=== PATIENT | male | born 1975 | race Two or more races ===

== ENCOUNTER 2021-05-26 00:44 | Inpatient (IN) | payer MEDICAID ==
[2021-05-26] VITALS (13 sets, daily range): BP systolic 92–133; BP diastolic 56–76
[~2021-05-26] VITALS: Ht 188 cm; Wt 87.5 kg
[~2021-05-26 00:44] MED LIST: ASPI81TA44; ATOR40TA PO; ESOM10SU PO; ESOM20CA PO; GLYB5TAB7 PO; METF-440; OMEG300C3 PO
--- NOTE | 2021-05-26 00:45 | NUR ---
TO ER BED 3 BIBEMS FROM HOME C/O SOB, LOW O2 SAT 90% ON CPAP BY EMS, CRACKLES HEARD BILATERALLY ON AUSCULTATION. PT AAOX4, ON CPAP BY EMS POINT OF SALE ASSOCIATE, NOTED O2 SAT 90%. PLACE PT ON CARDIAC MONITORING, CONTINUOUS POX. SKIN WARM, NONDIAPHORETIC. ER MD AT BEDSIDE TO EVAL PT WITH ORDERS RECEIVED. SL 20G ON THE R HAND POINT OF SALE ASSOCIATE. RT AT BEDSIDE TO PLACE PT ON BIPAP PER ER MD ORDER. WILL CARRY OUT ORDERS.
--- NOTE | 2021-05-26 00:45 | NUR ---
STARTED SL 18G TO [facility], BLOOD DRAWN AND SENT TO LAB.
[2021-05-26] MEDS ORDERED: NTG 50 MG/D5W250 ML BOTTL 0 ML IV ONE (00:52)
[2021-05-26] MEDS ORDERED: NTG 50 MG/D5W250 ML BOTTL 250 ML IV ONE (00:59)
[2021-05-26] MEDS ORDERED: NTG 50 MG/D5W250 ML BOTTL 50 MG/250 ML BTL IV ONE (01:00)
[2021-05-26 01:01] LABS: BASOPHILS % (AUTO) 0.1 % (0.0-2.0); EOSINOPHILS % (AUTO) 1.5 % (0.0-6.0); HEMATOCRIT 45 % (39-51); HEMOGLOBIN 15.1 g/dL (13.5-17.5); LYMPHOCYTES # (AUTO) 5.8 K/uL (0.8-4.8); LYMPHOCYTES % (AUTO) 28.3 % (20.0-44.0); MEAN CORPUSCULAR HGB CONC 34 g/dl (31.0-36.0); MEAN CORPUSCULAR VOLUME 89 fL (80-96); MONOCYTES # (AUTO) 1.3 K/uL (0.1-1.30); MONOCYTES % (AUTO) 6.3 % (2.0-12.0); NEUTROPHILS % (AUTO) 63.8 % (43.0-81.0); PLATELET COUNT (AUTO) 281 K/uL (150-450); RED BLOOD CELL COUNT(AUTO) 5.02 MIL/uL (4.5-6.0); WHITE BLOOD COUNT (AUTO) 20.4 K/uL (4.3-11.0)
--- NOTE | 2021-05-26 01:05 | NUR ---
RT PLACE PT ON BIAPAP. BIPAP SETTIN/5, RATE-16, FIO2-100%. WILL CONTINUE TO MONITOR.
--- NOTE | 2021-05-26 01:06 | NUR ---
NGT DRIP HELD DUE TO BP, PER ER .
--- NOTE | 2021-05-26 01:10 | NUR ---
RT NOTE LATE ENTRY: Pt rec'd on CPAP mask @ 15lpm via Transport team. Pt showed tachypnea, tachycardia, and low SPO2. Crackles heard on auscultation. Pt placed on bipap on noted settings per md orders. Abg to be taken within 1 hr. Alarms are set and audible. Ambu bag bedside. Bipap plugged into red outlet. will continue to monitor closely. Addendum: 05/26/21 at 0207 by PARRIS LEDEZMA RT Amended: Links added.
--- NOTE | 2021-05-26 01:14 | NUR ---
PT TOLERATING CURRENT BIPAP SETTING AT THIS TIME. CALL LIGHT WITHIN REACH.
[2021-05-26] MEDS ORDERED: PIPERACILLIN /TAZOBACTAM 3.375 G VIAL IV ONE (01:22)
[2021-05-26] MEDS ORDERED: VANCOMYCIN 1 GM VIAL ONE (01:22)
[2021-05-26 01:24] LABS: CREATININE 0.8 mg/dL (0.6-1.3); POTASSIUM 3.9 mmol/L (3.5-5.1)
[2021-05-26] MEDS ORDERED: VANCOMYCIN 1 GM in IV D5W 250 ML IV ONE (01:30)
[2021-05-26] MEDS ORDERED: PIPERACILLIN /TAZOBACTAM 3.375 G in IV D5W 50 ML IV ONE (01:30)
--- NOTE | 2021-05-26 01:33 | NUR ---
COVID SWAB COLLECTED AND SENT TO LAB
[2021-05-26 01:56] LABS: ALANINE AMINOTRANSFERASE 23 U/L (12-78); ALBUMIN 3.2 g/dL (3.4-5.0); ALKALINE PHOSPHATASE 94 U/L (46-116); ASPARTATE AMINOTRANSFERASE 20 U/L (15-37); BILIRUBIN,DIRECT 0.1 mg/dL (0.0-0.2); BILIRUBIN,TOTAL 0.3 mg/dL (0.2-1.0); TOTAL PROTEIN, SERUM 7.9 g/dL (6.4-8.2)
[2021-05-26] MEDS ORDERED: FUROSEMIDE 40 MG/4 ML VIAL IV ONE (02:00)
[2021-05-26] MEDS ORDERED: FUROSEMIDE 40 MG/4 ML VIAL ONE (02:17)
--- NOTE | 2021-05-26 03:20 | NUR ---
URINE COLLECTED AND SENT TO LAB
[2021-05-26 03:29] LABS: BILIRUBIN,URINE Negative (NEGATIVE); COLOR,URINE YELLOW (YELLOW); LEUKOCYTE ESTERASE ,URINE Negative (NEGATIVE); NITRITE, URINE Negative (NEGATIVE); PH,URINE 5.5 (5.0-8.0); PROTEIN,URINE >=300 mg/dl (NEGATIVE); UGLUCOSE 500 MG/DL mg/dL (NEGATIVE); UROBILINOGEN,URINE 0.2 EU/dL (0.2)
[2021-05-26 03:36] LABS: ABG BASE EXCESS -1.5 mmol/L; ABG OXYGEN SATURATION 97.9 % (92.0-98.5); ABG PCO2 38.3 mmHg (35.0-45.0); ABG PH 7.397 (7.350-7.450); ABG PO2 124.2 mmHg (75.0-100.0); AaDO2 550.5 mmHg; MetHb 0.3 % (0.0-1.5); O2Hb 95.6 % (94.0-97.0); SITE, ABG Right Radial
[2021-05-26 03:47] LABS: BACTERIA,URINE None seen /HPF (None Seen); SQUAMOUS EPITHELIAL CELL,UR Rare /HPF (None Seen)
[2021-05-26 03:48] LABS: MUCUS,URINE Few /LPF (None Seen)
[2021-05-26 03:49] LABS: FINE GRANULAR CASTS,URINE Few /LPF (None Seen)
--- NOTE | 2021-05-26 08:06 | NUR ---
GOT BED 258
--- NOTE | 2021-05-26 08:13 | NUR ---
BED ASSIGNMENT CHANGED TO 253
--- NOTE | 2021-05-26 08:36 | NUR ---
REPORT GIVEN TO NURSE CUTLER
[2021-05-26] MEDS ORDERED: Medication Not On Formulary EA (Omega-3 Fatty Acids (Fish Oil) 300 MG) PO SCH (09:00)
--- NOTE | 2021-05-26 09:00 | NUR ---
ICU/RN PT ADMITTED FROM ER.SOB ON VENTI MASK 50%-15L,SAT O2-94%.V/S STABLE,AFEBRILE.[id number].RR-35-40 BPM. NO PAIN REPORTED AT THIS TIME.IV-HL.SKIN INTACT.PT USE URINAL. ABG ORDERED. DUE MEDS ARE GIVEN ORDERED.LABS REVIEW. AWARE.
[2021-05-26] MEDS: METOPROLOL TARTRATE 25 MG TABLET PO SCH ×2 (09:25→21:00)
[2021-05-26] MEDS: FUROSEMIDE 40 MG/4 ML VIAL IV SCH ×2 (09:25→17:22)
[2021-05-26] MEDS: ASPIRIN EC 81 MG TABLET.DR PO SCH (09:26)
[2021-05-26] MEDS: ENOXAPARIN SODIUM 100 MG/ML DISP.SYRIN SQ SCH ×2 (09:27→21:15)
[2021-05-26 09:50] LABS: THYROID STIMULATING HORMONE 1.068 uIU/mL (0.358-3.74)
[2021-05-26 10:02] LABS: C-REACTIVE PROTEIN 5.4 mg/dL (0.0-0.9)
[2021-05-26] MEDS: CEFTRIAXONE 1 G in IV D5W 50 ML IV SCH (10:40)
[2021-05-26] MEDS ORDERED: IV NS 0.9% 1,000 ML ONE (11:19)
[2021-05-26] MEDS ORDERED: IODIXANOL 150 ML IV ONE (11:19)
[2021-05-26] MEDS ORDERED: NITROGLYCERIN IN 5 % DEXTROSE 0 ML IV ONE (11:19)
[2021-05-26] MEDS ORDERED: IV SET PRIMARY PUMP SET 1 EA INFUS.SET MC ONE (11:19)
[2021-05-26] MEDS ORDERED: VERAPAMIL HCL IV 5 MG/2 ML VIAL ONE (11:19)
[2021-05-26] MEDS ORDERED: LIDOCAINE HCL/MPF 1% 30 ML VIAL IJ ONE (11:27)
[2021-05-26] MEDS ORDERED: *INSULIN REGULAR(HUMULIN R)HUM 100 UNIT/ML VIAL SQ PRN (11:30)
[2021-05-26] MEDS ORDERED: DEXTROSE 50%-WATER 50 ML DISP.SYRIN IV PRN (11:30)
[2021-05-26] MEDS: BLOOD SUGAR DIAGNOSTIC 1 EACH STRIP VI SCH ×3 (11:37→21:29)
[2021-05-26] MEDS: glyBURIDE 5 MG TABLET PO SCH (11:37)
[2021-05-26] MEDS ORDERED: IV NS 0.9% 0 ML IV ONE (11:39)
[2021-05-26 11:52] LABS: ABG BASE EXCESS -1.7 mmol/L; ABG OXYGEN SATURATION 94.1 % (92.0-98.5); ABG PCO2 28.5 mmHg (35.0-45.0); ABG PH 7.472 (7.350-7.450); ABG PO2 65.1 mmHg (75.0-100.0); AaDO2 259.3 mmHg; COHb 0.7 % (0.5-1.5); MetHb 0.3 % (0.0-1.5); O2Hb 93.2 % (94.0-97.0); SITE, ABG Right Radial; VENT MODE, BG VENTI MASK 50%
[2021-05-26] MEDS ORDERED: ONDANSETRON HCL/PF 4 MG/2 ML VIAL IVP PRN (12:30)
[2021-05-26] MEDS ORDERED: ACETAMINOPHEN 325 MG TABLET PO PRN (12:30)
--- NOTE | 2021-05-26 17:03 | NUR ---
ICU/RN DUE MEDS ARE GIVEN ORDERED.PM CARE PROVIDED.FAMILY AT BED SIDE.V/S STABLE AFEBRILE.NO PAIN REPORTED AT THIS TIME.CONTINUE MONITORING.
[2021-05-26] MEDS: INSULIN REGULAR, HUMAN 100 UNIT/ML 3 ML VIAL SQ PRN ×2 (17:24→21:33)
[2021-05-26] MEDS ORDERED: ATORVASTATIN 40 MG TABLET PO SCH (22:00)
--- NOTE | 2021-05-26 22:33 | NUR ---
patient sleeping with 02 on at 5 liters n/c .sat 90%. lungs clear on monitor sinus tach heart rate 120 temp 99.1 patient b/p 92/60 held lopressor 25mg po. blood sugar 207 4 units given s.q. regular insulin s.q. called 2000 ask him if i could give lovenox 100 mg he said i could give the lovenox. patient to be npo midnite for heart cath.
[2021-05-27] VITALS (24 sets, daily range): BP systolic 92–126; BP diastolic 55–79
[2021-05-27 04:40] LABS: BASOPHILS % (AUTO) 0.2 % (0.0-2.0); EOSINOPHILS % (AUTO) 0.6 % (0.0-6.0); HEMATOCRIT 42 % (39-51); HEMOGLOBIN 14.4 g/dL (13.5-17.5); LYMPHOCYTES # (AUTO) 3.1 K/uL (0.8-4.8); LYMPHOCYTES % (AUTO) 21.9 % (20.0-44.0); MEAN CORPUSCULAR HGB CONC 34 g/dl (31.0-36.0); MEAN CORPUSCULAR VOLUME 88 fL (80-96); MONOCYTES # (AUTO) 0.9 K/uL (0.1-1.30); MONOCYTES % (AUTO) 6.6 % (2.0-12.0); NEUTROPHILS % (AUTO) 70.7 % (43.0-81.0); PLATELET COUNT (AUTO) 245 K/uL (150-450); WHITE BLOOD COUNT (AUTO) 14.2 K/uL (4.3-11.0)
[2021-05-27 04:48] LABS: CALCIUM, SERUM 8.7 mg/dL (8.5-10.1); CREATININE 0.7 mg/dL (0.6-1.3); POTASSIUM 3.5 mmol/L (3.5-5.1)
[2021-05-27 04:53] LABS: ALBUMIN 2.8 g/dL (3.4-5.0); BILIRUBIN,TOTAL 0.6 mg/dL (0.2-1.0); MAGNESIUM 1.9 mg/dL (1.8-2.4); PHOSPHORUS 3.5 mg/dL (2.5-4.9); TOTAL PROTEIN, SERUM 7.5 g/dL (6.4-8.2)
[2021-05-27 05:02] LABS: THYROID STIMULATING HORMONE 0.533 uIU/mL (0.358-3.74)
--- NOTE | 2021-05-27 05:18 | NUR ---
AT 0515 TROPONIN 0.541 COMING DOWN YESTERDAY TROPONIN 0.567.
[2021-05-27] MEDS: BLOOD SUGAR DIAGNOSTIC 1 EACH STRIP VI SCH ×4 (07:29→21:32)
--- NOTE | 2021-05-27 07:40 | NUR ---
ICU/RN PT IS RESTING IN THE BED ON 4L N/C SAT O2-94%.V/S STABLE,AFEBRILE.HR -ST-111 BPM.NO PAIN REPORTED AT THIS TIME.PT IS NPO.WAITING FOR THE PROFESSOR OF SPECIAL EDUCATION. DR ROJAS SEEN THE PT.LABS REVIEW. AWARE.CONTINUE MONITORING.
[2021-05-27] MEDS ORDERED: FENTANYL PF 100MCG/2ML AMPUL ONE (07:59)
[2021-05-27] MEDS ORDERED: IODIXANOL 150 ML IV ONE (07:59)
[2021-05-27] MEDS ORDERED: MIDAZOLAM HCL 2 MG/2ML VIAL ONE (07:59)
[2021-05-27] MEDS ORDERED: NTG 50 MG/D5W250 ML BOTTL 0 ML IV ONE (08:00)
[2021-05-27] MEDS ORDERED: IV NS 0.9% 1,000 ML ONE (08:03)
--- NOTE | 2021-05-27 08:05 | NUR ---
ICU/RN PT AGREE FOR LEFT HEART CATH CATHETERIZATION PROCEDURE.CONSENT SIGN .TRANSFERRED TO RENTAL CLERK.
[2021-05-27] MEDS ORDERED: LIDOCAINE HCL/MPF 1% 30 ML VIAL IJ ONE (08:14)
[2021-05-27] MEDS: POTASSIUM CHLORIDE 20 MEQ TAB.PRT.SR PO SCH ×3 (08:29→11:37)
[2021-05-27] MEDS: CARVEDILOL 3.125 MG TABLET PO SCH ×2 (08:29→21:08)
[2021-05-27] MEDS: ASPIRIN EC 81 MG TABLET.DR PO SCH (08:29)
[2021-05-27] MEDS: FUROSEMIDE 40 MG/4 ML VIAL IV SCH ×3 (08:29→15:24)
[2021-05-27] MEDS: glyBURIDE 5 MG TABLET PO SCH (08:30)
[2021-05-27] MEDS: METOPROLOL TARTRATE 25 MG TABLET PO SCH ×2 (08:30→21:07)
[2021-05-27] MEDS: PANTOPRAZOLE 40 MG TABLET.DR PO SCH (08:30)
[2021-05-27] MEDS ORDERED: INSULIN GLARGINE, 100 UNIT/ML CARTRIDGE SQ ONE (09:00)
[2021-05-27] MEDS: NICOTINE PATCH (21MG) 21 MG PATCH.TD24 TD SCH (09:33)
[2021-05-27] MEDS: CEFTRIAXONE 1 G in IV D5W 50 ML IV SCH (09:33)
[2021-05-27] MEDS: ENOXAPARIN SODIUM 80 MG/0.8 ML DISP.SYRIN SQ SCH ×2 (09:34→21:09)
[2021-05-27] MEDS: INSULIN REGULAR, HUMAN 100 UNIT/ML 3 ML VIAL SQ PRN ×2 (09:36→18:23)
--- NOTE | 2021-05-27 14:00 | NUR ---
ICU/RN TR BAND REMOVED.NO S/S OF BLEEDING NOTED.
--- NOTE | 2021-05-27 18:00 | NUR ---
ICU/RN PM CARE PROVIDED.DUE MEDS ARE GIVEN ORDERED.V/S STABLE,AFEBRILE NO PAIN REPORTED AT THIS TIME.
[2021-05-27] MEDS ORDERED: LORAZEPAM INJ 2 MG/ML VIAL ONE (18:13)
--- NOTE | 2021-05-27 19:35 | NUR ---
RN NOTES RECEIVED PATIENT ON BED TALKING TO HIS PHONE. PATIENT IS AOX4 JAPANESE SPEAKING. FULL CODE. DX WITH CHF, NSTEMI. S/P CARDIAC CATH ON RADIAL ACCESS. DENIES CHEST PAIN. NO ACUTE RESPIRATORY DISTRESS. WITH O2 5LPM VIA NC SATURATION 95%. AFEBRILE. SINUS TACH WITH BBB IN MONITOR. HR 120'S. IV SITE ON RIGHT HAND G 20 AND RAC G 18 INTACT AND PATENT. KEPT PT CLEAN AND COMFORTABLE IN BED. CALL LIGHT KEPT WITHIN EASY REACH INSTRUCTION PROVIDED. WILL CONTINUE TO MONITOR.
[2021-05-27] MEDS: ATORVASTATIN 40 MG TABLET PO SCH (21:06)
[2021-05-28] VITALS (12 sets, daily range): BP systolic 98–134; BP diastolic 54–80
--- NOTE | 2021-05-28 | NUR ---
RN NOTES PATIENT ASLEEP WELL , BREATHING EVEN AND UNLABORED. CONTINUE WITH O2 4LPM VIA NC SATURATION BETWEEN 90-93%. AFEBRILE. VSS. INDEPENDENT WITH BED MOBILITY. WILL CONT.TO MONITOR.
[2021-05-28 04:46] LABS: BASOPHILS % (AUTO) 0.1 % (0.0-2.0); EOSINOPHILS % (AUTO) 2.2 % (0.0-6.0); HEMATOCRIT 43 % (39-51); HEMOGLOBIN 14.7 g/dL (13.5-17.5); LYMPHOCYTES % (AUTO) 31.5 % (20.0-44.0); MEAN CORPUSCULAR HGB CONC 34 g/dl (31.0-36.0); MEAN CORPUSCULAR VOLUME 89 fL (80-96); MONOCYTES % (AUTO) 7.5 % (2.0-12.0); NEUTROPHILS # (AUTO) 7.5 K/uL (1.8-8.9); NEUTROPHILS % (AUTO) 58.7 % (43.0-81.0); PLATELET COUNT (AUTO) 252 K/uL (150-450); RED BLOOD CELL COUNT(AUTO) 4.82 MIL/uL (4.5-6.0); WHITE BLOOD COUNT (AUTO) 12.7 K/uL (4.3-11.0)
[2021-05-28 05:07] LABS: ALBUMIN 2.7 g/dL (3.4-5.0); BILIRUBIN,TOTAL 0.5 mg/dL (0.2-1.0); CREATININE 0.9 mg/dL (0.6-1.3); MAGNESIUM 2.3 mg/dL (1.8-2.4); PHOSPHORUS 3.8 mg/dL (2.5-4.9); POTASSIUM 3.5 mmol/L (3.5-5.1)
--- NOTE | 2021-05-28 06:46 | NUR ---
RN NOTES PATIENT ASLEEP WELL ON BED. NO ACUTE RESPIRATORY DISTRESS ON O2 4LPM VIA NC SATURATION >90%. DENIES PAIN OR CHEST PAIN. AFEBRILE. VSS RIGHT RADIAL INTACT NO BLEEDING. NO SIGNIFICANT CHANGES THROUGHOUT THE SHIFT. WILL CONTINUE CLOSE MONITOR.
--- NOTE | 2021-05-28 08:00 | NUR ---
ICU/RN PT IS AWAKE ,ALERT,ORIENTED-4.ON 4L N/C SAT O2-95%.V/S STABLE,AFEBRILE.NO PAIN REPORTED AT THIS TIME.IV-HL.SKIN INTACT.PT USE URINAL.LABS REVIEW. AWARE.
[2021-05-28] MEDS: ASPIRIN EC 81 MG TABLET.DR PO SCH (08:33)
[2021-05-28] MEDS: glyBURIDE 5 MG TABLET PO SCH ×3 (08:33→16:40)
[2021-05-28] MEDS: CARVEDILOL 3.125 MG TABLET PO SCH (08:34)
[2021-05-28] MEDS: METOPROLOL TARTRATE 25 MG TABLET PO SCH ×2 (08:34→22:39)
[2021-05-28] MEDS: PANTOPRAZOLE 40 MG TABLET.DR PO SCH (08:34)
[2021-05-28] MEDS: NICOTINE PATCH (21MG) 21 MG PATCH.TD24 TD SCH (08:34)
[2021-05-28] MEDS: BLOOD SUGAR DIAGNOSTIC 1 EACH STRIP VI SCH ×4 (08:35→22:41)
[2021-05-28] MEDS: ENOXAPARIN SODIUM 80 MG/0.8 ML DISP.SYRIN SQ SCH ×2 (08:36→22:40)
[2021-05-28] MEDS: INSULIN REGULAR, HUMAN 100 UNIT/ML 3 ML VIAL SQ PRN ×3 (08:37→16:46)
--- NOTE | 2021-05-28 09:00 | NUR ---
ICU/RN DUE MEDS ARE GIVEN ORDERED. OK TRANSFER TO TELE UNIT.
[2021-05-28] MEDS: CEFTRIAXONE 1 G in IV D5W 50 ML IV SCH (09:36)
[2021-05-28] MEDS: FUROSEMIDE 40 MG/4 ML VIAL IV SCH ×2 (09:38→16:40)
--- NOTE | 2021-05-28 11:02 | NUR ---
RN NOTE RECEIVED REPORT FROM ENRIQUE WEN
--- NOTE | 2021-05-28 11:15 | NUR ---
ICU/RN PT TRANSFERRED TO TELE UNIT ,V/S STABLE,AFEBRILE.NO PAIN REPORTED AT THIS TIME.FAMILY AT BEDSIDE.CONTINUE MONITORING.REPORT GIVEN TO NA/RN
--- NOTE | 2021-05-28 18:55 | NUR ---
RN NOTE PATIENT RESTING IN BED. A/O X4. ON 02 AT 5 LPM VIA NC. NO SOB NOTED. IN NO APPARENT DISTRESS. NO REPORTS OF PAIN OR DISCOMFORT AT THIS TIME. IV ACCESS ON R AC #18 G AND L HAND #18 G, INTACT AND PATENT. NO SIGNS OF INFILTRATION. DUE MEDS GIVEN ORDERED. ALL NEEDS HAVE BEEN MET AND ATTENDED. PER DR. RAMIREZ PT WILL BE HAVING L HEART CATH/STENT TOMORROW. CONSENTS SIGNED. HE ALSO ORDERED TO KEEP THE PT ON NPO AFTER MIDNIGHT. ORDER CARRIED OUT. SAFETY MEASURES MAINTAINED. BED IN LOWEST POSITION, BRAKES LOCKED. SIDE RAILS UP X2. CALL LIGHT WITHIN REACH. WILL ENDORSE CONTINUITY OF CARE TO ONCOMING SHIFT.
[2021-05-28] MEDS: ATORVASTATIN 40 MG TABLET PO SCH (22:41)
--- NOTE | 2021-05-28 23:00 | NUR ---
MS/TELE/RN PATIENT IS GOING TO HAVE HEART CATH IN A.M., PER DR. KERR IT IS OK TO GIVE LOVENOX.
[2021-05-29] VITALS (18 sets, daily range): BP systolic 102–149; BP diastolic 55–80
[2021-05-29 06:12] LABS: BASOPHILS % (AUTO) 0.3 % (0.0-2.0); EOSINOPHILS % (AUTO) 2.9 % (0.0-6.0); HEMATOCRIT 42 % (39-51); HEMOGLOBIN 14.6 g/dL (13.5-17.5); LYMPHOCYTES # (AUTO) 3.4 K/uL (0.8-4.8); LYMPHOCYTES % (AUTO) 27.3 % (20.0-44.0); MEAN CORPUSCULAR HGB CONC 35 g/dl (31.0-36.0); MEAN CORPUSCULAR VOLUME 88 fL (80-96); MONOCYTES # (AUTO) 0.8 K/uL (0.1-1.30); MONOCYTES % (AUTO) 6.6 % (2.0-12.0); NEUTROPHILS # (AUTO) 7.8 K/uL (1.8-8.9); NEUTROPHILS % (AUTO) 62.9 % (43.0-81.0); PLATELET COUNT (AUTO) 263 K/uL (150-450); WHITE BLOOD COUNT (AUTO) 12.4 K/uL (4.3-11.0)
--- NOTE | 2021-05-29 06:16 | NUR ---
MS/TELE/RN PATIENT IS AWAKE, COMFORTABLE, NO SIGNS OF DISTRESS NOTED, ACCU CHECK BLOOD SUGAR AT 0600= 267, DID NOT COVER WITH INSULIN PER SLIDING SCALE PATIENT IS NPO SINCE MIDNIGHT FOR HEART CATH TODAY, NO S/S OF HYPERGLYCEMIA NOTED, ALL NEEDS ATTENDED AT THIS TIME, WILL CONTINUE TO MONITOR.
[2021-05-29 06:24] LABS: CALCIUM, SERUM 9.1 mg/dL (8.5-10.1); CREATININE 0.7 mg/dL (0.6-1.3); POTASSIUM 3.6 mmol/L (3.5-5.1)
[2021-05-29] MEDS: PANTOPRAZOLE 40 MG TABLET.DR PO SCH (07:30)
--- NOTE | 2021-05-29 07:49 | NUR ---
TELE/RN OPENING NOTES RECEIVED PATIENT IN BED, AWAKE, ALERT AND ORIENTED X4, ABLE TO MAKE NEEDS KNOWN. ON 5 LPM OF OXYGEN VIA NASAL CANNULA. NO SOB NOTED, NO DISTRESS REPORTED. PATIENT IS ON NPO SINCE MIDNIGHT FOR HEART CATH TODAY WITH DR. RAMIREZ. ALL CONSENTS SIGNED. IV ACCESS ON RIGHT AC INTACT AND PATENT ON HEPLOCK. SAFETY PRECAUTIONS IN PLACED. BED LOCKED ON LOWEST POSITION, SIDE RAILS UPX2, CALL LIGHT WITHIN REACH. WILL CONTINUE TO MONITOR PATIENT.
[2021-05-29] MEDS ORDERED: IODIXANOL 150 ML IV ONE (08:10)
[2021-05-29] MEDS ORDERED: IV SET PRIMARY PUMP SET 1 EA INFUS.SET MC ONE (08:10)
[2021-05-29] MEDS ORDERED: IV NS 0.9% 1,000 ML ONE (08:10)
[2021-05-29] MEDS ORDERED: LIDOCAINE HCL/MPF 1% 30 ML VIAL IJ ONE (08:13)
--- NOTE | 2021-05-29 08:30 | NUR ---
TELE/RN NOTES PATIENT WAS PICKED UP BY OR STAFF FOR THE HEART CATHETER PROCEDURE VIA GURNEY. PATIENT IS IN NO DISTRESS. ALL CONSENTS SIGNED.
[2021-05-29] MEDS: BLOOD SUGAR DIAGNOSTIC 1 EACH STRIP VI SCH ×4 (08:43→21:41)
[2021-05-29] MEDS ORDERED: MIDAZOLAM HCL 2 MG/2ML VIAL ONE (08:51)
[2021-05-29] MEDS ORDERED: FENTANYL PF 100MCG/2ML AMPUL ONE (08:51)
[2021-05-29] MEDS ORDERED: HEPARIN SODIUM, PORCINE 5000 UNITS/1 ML VIAL ONE (08:51)
[2021-05-29] MEDS ORDERED: HEPARIN SODIUM, PORCINE 1,000 UNIT/ML VIAL ONE ×2 (08:52→09:34)
[2021-05-29] MEDS ORDERED: NITROGLYCERIN IN 5 % DEXTROSE 250 ML IV ONE (08:52)
[2021-05-29] MEDS ORDERED: IODIXANOL 320MG/ML 50 ML IV ONE (08:52)
[2021-05-29] MEDS: FUROSEMIDE 40 MG/4 ML VIAL IV SCH ×2 (09:00→17:15)
[2021-05-29] MEDS: METOPROLOL TARTRATE 25 MG TABLET PO SCH ×2 (09:00→21:37)
[2021-05-29] MEDS: NICOTINE PATCH (21MG) 21 MG PATCH.TD24 TD SCH (09:00)
[2021-05-29] MEDS: ENOXAPARIN SODIUM 80 MG/0.8 ML DISP.SYRIN SQ SCH (09:00)
[2021-05-29] MEDS: glyBURIDE 5 MG TABLET PO SCH ×2 (09:00→17:16)
[2021-05-29] MEDS: ASPIRIN EC 81 MG TABLET.DR PO SCH (09:00)
[2021-05-29] MEDS ORDERED: TICAGRELOR 90 MG TABLET PO ONE (09:23)
[2021-05-29] MEDS ORDERED: SITAGLIPTIN PHOSPHATE 50 MG TABLET PO SCH (09:30)
[2021-05-29] MEDS ORDERED: IODIXANOL 320MG/ML 100 ML IV ONE (09:32)
[2021-05-29] MEDS: LINAGLIPTIN 5 MG TABLET PO SCH (09:45)
--- NOTE | 2021-05-29 10:06 | NUR ---
PT ARRIVED FROM COMPLIANCE TESTING ANALYST AT THIS TIME. PT SETTLED IN ROOM, TELEMETRY APPLIED. PT INSTRUCTED ON TR BAND AND NOT TO BEAR WEIGHT OR BEND RIGHT WRIST. ORDERS FAXED TO PHARMACY. PT ALERT OX4. FAMILY AT BEDSIDE, FAMILY ADVISED NO MORE THAN 2 VISITORS IN THE ROOM AT A TIME, FAMILY AGREED. TR BAND APPLIED AT 0940 PER REPORT, START REMOVING AIR AT 1140. PT CHECKED ON HOURLY AND PRN BY NURSING STAFF.
--- NOTE | 2021-05-29 11:03 | NUR ---
Fundraising Officer note: Per Dr. Justice's request, a DMV Request for Reexamination form was completed by PORSHA Gillespie. This DANDY OPERATOR met with fire extinguisher charger Lori and informed her that the form needs to be signed by Dr. Justice. Form was placed in patient's chart, and ENRIQUE Ozuna stated she would endorse it to the next charge nurse.
[2021-05-29] MEDS: CEFTRIAXONE 1 G in IV D5W 50 ML IV SCH (11:24)
--- NOTE | 2021-05-29 12:00 | NUR ---
Patient endorsed to senior technical writer by charge nurse. Patient in good stable condition. per RN patient came with 13 cc of air to the radial site. TR band noted and air removed with no s/s of bleeding. Will continue to monitor. Call light with in reach.
[2021-05-29] MEDS: INSULIN REGULAR, HUMAN 100 UNIT/ML 3 ML VIAL SQ PRN ×2 (12:15→17:11)
--- NOTE | 2021-05-29 15:01 | NUR ---
Removed TR BAND WITH NO S/S OF BLEEDING. Patient will be monitored. Call light with in reach. No c/o numbness or tingling in his hand or arm.
--- NOTE | 2021-05-29 15:02 | NUR ---
removed 3 cc at 12 10 and then at 12 25pm at then at 1245 and at 13;25 3 cc out. Noted with minimal amount of blood at 3 cc put back in. Patient monitored with no symptoms or bleeding removed another 3 cc out and waited 15 minutes and then removed 1 cc. TR BAND REMOVED AND PATIENT MONITORED
[2021-05-29] MEDS ORDERED: TICAGRELOR 90 MG TABLET PO SCH (17:00)
--- NOTE | 2021-05-29 18:28 | NUR ---
Patient transferred to [facility] in stable condition. No s/s of bleeding from radial artery site. No c/o pain or discomfort. Patient in good stable condition. Patient transferred in wheelchair. Report given to Renay NUNEZ.
--- NOTE | 2021-05-29 18:30 | NUR ---
TELE/RN RECEIVING NOTES RECEIVED PATIENT, A TRANSFER FROM ICU VIA WHEELCHAIR. PATIENT IS ALERT AND ORIENTEDX4, ABLE TO MAKE NEEDS KNOWN. AMBULATORY. STABLE ON ROOM AIR. S/P CATH PCI PTCA AND STENTING OF DISTAL LEFT CIRCUMFLEX, PTCA AND STENTING OF MID LAD, LEFT HEART CATHETERIZATION VIA RIGHT WRIST DONE. NO BLEEDING NOTED ON RIGHT WRIST WITH CLEAR FILM COVER TO MONITOR BLEED. SAFETY PRECAUTIONS IN PLACED: BED LOCKED ON LOWEST POSITION, SIDE RAILS UPX2, CALL LIGHT WITHIN EASY REACH. WILL CONTINUE TO MONITOR.
--- NOTE | 2021-05-29 19:00 | NUR ---
TELE/RN CLOSING NOTES PATIENT IN BED, AWAKE, ALERT AND ORIENTED X4, ABLE TO MAKE NEEDS KNOWN. STABLE ON ROOM AIR. NO SOB NOTED, NO DISTRESS REPORTED. ON TELEMONITOR WITH A READING OF SINUS TACHY 105. IV ACCESS ON RIGHT AC INTACT AND PATENT ON HEPLOCK. SAFETY PRECAUTIONS IN PLACED. BED LOCKED ON LOWEST POSITION, SIDE RAILS UPX2, CALL LIGHT WITHIN REACH. WILL ENDORSE TO THE NEXT SHIFT FOR NEGRITA.
--- NOTE | 2021-05-29 20:24 | NUR ---
MS/TELE/RN ON INITIAL SHIFT ASSESSMENT, PATIENT WAS IN ROOM SITTING AT EDGE OF BED AWAKE, ALERT, ORIENTED, COMFORTABLE, NO C/O PAIN, NO DISTRESS NOTED, CALL LIGHT IN REACH. RT. HAND IV WAS REMOVED PER PATIENT'S REQUEST IT BOTHERS HIM. FAMILY MEMBERS AT BEDSIDE. WILL MONITOR.
[2021-05-29] MEDS: ATORVASTATIN 40 MG TABLET PO SCH (21:35)
--- NOTE | 2021-05-29 21:48 | NUR ---
MS/TELE/RN PATIENT REFUSED INSULIN COVERAGE FOR THE BLOOD SUGAR, PATIENT DOES NOT WANT TO BE BOTHERED SO HE CAN SLEEP.
[2021-05-30 04:00] VITALS: BP 109/57
--- NOTE | 2021-05-30 06:12 | NUR ---
MS/TELE/RN PATIENT IS STILL SLEEPING, APPER COMFORTABLE, NO SIGNS OF DISTRESS NOTED, CALL LIGHT IN REACH, ALL NEEDS ATTENDED AT THIS THIS TIME, WILL CONTINUE TO MONITOR..
[2021-05-30 06:22] LABS: CALCIUM, SERUM 9.3 mg/dL (8.5-10.1); CREATININE 0.8 mg/dL (0.6-1.3); POTASSIUM 3.6 mmol/L (3.5-5.1)
[2021-05-30 06:25] LABS: BASOPHILS % (AUTO) 0.4 % (0.0-2.0); EOSINOPHILS % (AUTO) 3.1 % (0.0-6.0); HEMATOCRIT 42 % (39-51); HEMOGLOBIN 14.3 g/dL (13.5-17.5); LYMPHOCYTES # (AUTO) 2.7 K/uL (0.8-4.8); LYMPHOCYTES % (AUTO) 23.6 % (20.0-44.0); MEAN CORPUSCULAR HGB CONC 34 g/dl (31.0-36.0); MEAN CORPUSCULAR VOLUME 88 fL (80-96); MONOCYTES # (AUTO) 0.9 K/uL (0.1-1.30); MONOCYTES % (AUTO) 7.9 % (2.0-12.0); NEUTROPHILS # (AUTO) 7.4 K/uL (1.8-8.9); PLATELET COUNT (AUTO) 270 K/uL (150-450); RED BLOOD CELL COUNT(AUTO) 4.82 MIL/uL (4.5-6.0); WHITE BLOOD COUNT (AUTO) 11.4 K/uL (4.3-11.0)
[2021-05-30] MEDS: BLOOD SUGAR DIAGNOSTIC 1 EACH STRIP VI SCH (07:05)
--- NOTE | 2021-05-30 07:30 | NUR ---
TELE/RN CLOSING NOTES RECEIVED PATIENT ON BED, AWAKE, ALERT AND ORIENTED X4, ABLE TO MAKE NEEDS KNOWN. STABLE ON ROOM AIR. WITHOUT COMPLAINT OF SOB, NOT IN DISTRESS. ON TELEMONITOR WITH A READING OF SINUS TACHY 107. WITH IV ACCESS AT RIGHT AC #18 AND AT LEFT HAND #18, INTACT AND PATENT, SALINE LOCKED. SAFETY MEASURES IN PLACED. BED ON LOWEST, LOCKED POSITION, SIDE RAILS UPX2, CALL LIGHT WITHIN REACH. WILL CONTINUE TO MONITOR.
[2021-05-30] MEDS ORDERED: METF500S7 PO (09:00)
[2021-05-30] MEDS ORDERED: TICA90TA PO (09:00)
[2021-05-30] MEDS ORDERED: TICAGRELOR 90 MG TABLET PO SCH (09:00)
[2021-05-30] MEDS ORDERED: SITA50TA PO (09:00)
[2021-05-30] MEDS ORDERED: GLYB5TAB7 PO (09:00)
[2021-05-30] MEDS ORDERED: ENOXAPARIN SODIUM 40 MG/0.4 ML DISP.SYRIN SQ SCH (09:00)
[2021-05-30] MEDS ORDERED: METO50TA7 PO (09:00)
[2021-05-30] MEDS ORDERED: LEVO250T59 PO (09:05)
[2021-05-30] MEDS: NICOTINE PATCH (21MG) 21 MG PATCH.TD24 TD SCH (09:59)
[2021-05-30] MEDS: ASPIRIN EC 81 MG TABLET.DR PO SCH (09:59)
[2021-05-30] MEDS: CEFTRIAXONE 1 G in IV D5W 50 ML IV SCH (10:00)
[2021-05-30 10:01] VITALS: BP 118/66
[2021-05-30] MEDS: METOPROLOL TARTRATE 25 MG TABLET PO SCH (10:01)
[2021-05-30] MEDS: LINAGLIPTIN 5 MG TABLET PO SCH (10:02)
[2021-05-30] MEDS: glyBURIDE 5 MG TABLET PO SCH (10:03)
[2021-05-30] MEDS: PANTOPRAZOLE 40 MG TABLET.DR PO SCH (10:07)
--- NOTE | 2021-05-30 10:34 | NUR ---
WALNUT DEHYDRATOR OPERATORPATTERN TECHNICIAN NOTES PATIENT SITTING ON BED WITH NO COMPLAINTS OF PAIN. NO SOB NOTED, NOT IN DISTRESS. FOR DISCHARGE PER DOCTOR'S ORDER. PRESCRIPTION GIVEN TO PATIENT AND DISCHARGE INSTRUCTION PROVIDED. PATIENT VERBALIZED UNDERSTANDING. ALL BELONGINGS CHECKED. THE PATIENT WAS PICKED UP BY . INSTRUCTED TO FOLLOW UP WITH PCP 1 WEEK AFTER DISCHARGE.
== END 2021-05-30 10:34 | DRG 175 ==
LOC: ER 00:45 → TRANSITION 03:57 → ICU 08:10 → TELE 05-28 11:08 → ICU 05-29 10:28 → MED 05-29 18:13 → TELE 05-29 18:15 → MED 05-30 09:17
PROVIDERS: ADMIT Internal Medicine; ATTEND Internal Medicine
PROC: 4A023N7 Measurement of Cardiac Sampling and Pressure, Left Heart, Percutaneous Approach (ICD-10-PCS; principal; 2021-05-27)
PROC: B215YZZ Fluoroscopy of Left Heart using Other Contrast (ICD-10-PCS; 2021-05-27)
PROC: B211YZZ Fluoroscopy of Multiple Coronary Arteries using Other Contrast (ICD-10-PCS; 2021-05-27)
PROC: B31HYZZ Fluoroscopy of Right Upper Extremity Arteries using Other Contrast (ICD-10-PCS; 2021-05-27)
PROC: 027136Z Dilation of Coronary Artery, Two Arteries with Three Drug-eluting Intraluminal Devices, Percutaneous Approach (ICD-10-PCS; 2021-05-29)
PROC: 4A023N7 Measurement of Cardiac Sampling and Pressure, Left Heart, Percutaneous Approach (ICD-10-PCS; 2021-05-29)
PROC: B211YZZ Fluoroscopy of Multiple Coronary Arteries using Other Contrast (ICD-10-PCS; 2021-05-29)
PROC: B215YZZ Fluoroscopy of Left Heart using Other Contrast (ICD-10-PCS; 2021-05-29)
PROC: B31HYZZ Fluoroscopy of Right Upper Extremity Arteries using Other Contrast (ICD-10-PCS; 2021-05-29)
DX: I11.0 Hypertensive heart disease with heart failure (principal); J96.01 Acute respiratory failure with hypoxia; I21.4 Non-ST elevation (NSTEMI) myocardial infarction; E11.9 Type 2 diabetes mellitus without complications; Z20.822 Contact with and (suspected) exposure to COVID-19; K21.9 Gastro-esophageal reflux disease without esophagitis; Z91.19 Patient's noncompliance with other medical treatment and regimen; N39.0 Urinary tract infection, site not specified; Z79.84 Long term (current) use of oral hypoglycemic drugs; Z79.82 Long term (current) use of aspirin; Z79.899 Other long term (current) drug therapy; E78.5 Hyperlipidemia, unspecified; I24.9 Acute ischemic heart disease, unspecified; G47.33 Obstructive sleep apnea (adult) (pediatric); E66.9 Obesity, unspecified; Z68.24 Body mass index [BMI] 24.0-24.9, adult; I50.43 Acute on chronic combined systolic (congestive) and diastolic (congestive) heart failure; F17.200 Nicotine dependence, unspecified, uncomplicated; I25.2 Old myocardial infarction; I25.110 Atherosclerotic heart disease of native coronary artery with unstable angina pectoris
CPT/HCPCS: 36415; 36600; 71045-TC; 76770-TC; 80048-TC; 80053-TC; 80061-TC; 80076-TC; 81001; 82728-TC; 82803-TC; 82962-TC; 83605-TC; 83615-TC; 83735-TC; 83880; 84100-TC; 84439-TC; 84443-TC; 84484-TC; 85025-TC; 85610-TC; 86140-TC; 87040-TC; 87081-TC; 87086-TC; 92980; 92981; 93307-TC; 94799-TC; 99082-TC; C1725; C1769; C1887; C9803; G0378; G0500; J0696; J1644; J1650; J1815; J1940; J2060; J2250; J2543; J3010; J3370; J3490; J7030; J7050; J7060; Q9967; U0003